=== PATIENT | female | born 2000 | race Caucasian/White ===

== ENCOUNTER 2024-08-31 20:04 | Emergency (ER) | payer BC ==
[2024-08-31] MEDS ORDERED: Dexamethasone 10 MG/ML VIAL ONE (20:39)
[2024-08-31] MEDS ORDERED: Famotidine 20 MG TAB ONE (20:39)
[2024-08-31] MEDS ORDERED: diphenhydrAMINE 25 MG CAP ONE (20:39)
== END 2024-08-31 22:22 | disposition home or self-care (01) ==
LOC: ERS 20:04
DX: T78.1XXA Other adverse food reactions, not elsewhere classified, initial encounter (principal); L50.9 Urticaria, unspecified
CPT/HCPCS: 93005; 99283; J1100